=== PATIENT | male | born 1970 ===

== ENCOUNTER 2024-03-11 16:02 | Outpatient (RCR) | payer BC, SELFPAY | END 2024-03-11 23:59 | disposition home or self-care (01) | LOC: RST 16:02 | PROVIDERS: ATTENDING PHYSICIAN Otolaryngology; FAMILY PHYSICIAN Family Medicine | DX: J38.2 Nodules of vocal cords (principal); R49.0 Dysphonia | CPT/HCPCS: 92507; 92524 ==

== ENCOUNTER 2024-04-08 16:12 | Outpatient (RCR) | payer BC, SELFPAY | END 2024-04-08 23:59 | disposition home or self-care (01) | LOC: RST 16:12 | PROVIDERS: ATTENDING PHYSICIAN Otolaryngology; FAMILY PHYSICIAN Family Medicine | DX: J38.2 Nodules of vocal cords (principal); R49.0 Dysphonia | CPT/HCPCS: 92507 ==

== ENCOUNTER 2024-04-21 16:30 | Outpatient (RCR) | payer BC, SELFPAY | END 2024-04-22 08:31 | disposition home or self-care (01) | LOC: RST 16:30 | PROVIDERS: ATTENDING PHYSICIAN Otolaryngology; FAMILY PHYSICIAN Family Medicine | DX: J38.2 Nodules of vocal cords (principal); R49.0 Dysphonia | CPT/HCPCS: 92507 ==